=== PATIENT | male | born 1940 | race Caucasian/White ===

== ENCOUNTER → 2017-04-02 | Outpatient (CLI) | payer MEDICARE, OTHER ==
[~2017-04-02] VITALS: Ht 177.8 cm; Wt 88.0 kg
[~2017-04-02] MED LIST: ADENOSINE 74 MG in GIVE UN-DILUTED 0 ML IV ONE; ADENOSINE 90 MG/30 ML INJ IV ONE; ASPI81CH43 GT; CAR3125T PO; PRAS10TA GT; SIMV10TA84 PO; ZOLP10TA PO
== END | disposition home or self-care (01) ==
LOC: Rad HDHVI 08:03
PROVIDERS: ATTEND Internal Medicine Cardiovascular Disease
DX: I25.2 Old myocardial infarction (principal); I10 Essential (primary) hypertension; E11.9 Type 2 diabetes mellitus without complications; E78.00 Pure hypercholesterolemia, unspecified; E78.2 Mixed hyperlipidemia; Z95.1 Presence of aortocoronary bypass graft; Z95.0 Presence of cardiac pacemaker
CPT/HCPCS: 78452; 93005; 93306; 96374; 96375; A9500; J0153

== ENCOUNTER → 2017-07-01 | Outpatient (CLI) | payer MEDICARE, OTHER ==
[~2017-07-01] MED LIST changes: -ADENOSINE 74 MG in GIVE UN-DILUTED 0 ML IV ONE; -ADENOSINE 90 MG/30 ML INJ IV ONE
[2017-07-01 12:31] LABS: Vitamin B12 > 2000 pg/mL (211-911)
== END | disposition home or self-care (01) ==
LOC: LAB 08:53
PROVIDERS: ATTEND Internal Medicine Cardiovascular Disease
DX: E03.9 Hypothyroidism, unspecified (principal); R53.81 Other malaise; D51.9 Vitamin B12 deficiency anemia, unspecified
CPT/HCPCS: 36415; 82607; 84403; 84439; 84443

== ENCOUNTER → 2017-11-12 | Outpatient (CLI) | payer MEDICARE, OTHER | END | disposition home or self-care (01) | LOC: Rad HDHVI 08:48 | PROVIDERS: ATTEND Internal Medicine Cardiovascular Disease | DX: I73.9 Peripheral vascular disease, unspecified (principal); M79.606 Pain in leg, unspecified | CPT/HCPCS: 93926 ==

== ENCOUNTER → 2018-04-29 | Outpatient (CLI) | payer MEDICARE, BC | END | disposition home or self-care (01) | LOC: Rad HDHVI 13:15 | PROVIDERS: ATTEND Internal Medicine Cardiovascular Disease | DX: K42.9 Umbilical hernia without obstruction or gangrene (principal); K44.9 Diaphragmatic hernia without obstruction or gangrene; K57.30 Diverticulosis of large intestine without perforation or abscess without bleeding; I34.0 Nonrheumatic mitral (valve) insufficiency; I70.0 Atherosclerosis of aorta; I51.7 Cardiomegaly; I50.23 Acute on chronic systolic (congestive) heart failure; J44.9 Chronic obstructive pulmonary disease, unspecified; I73.9 Peripheral vascular disease, unspecified; N28.9 Disorder of kidney and ureter, unspecified; D64.9 Anemia, unspecified; E11.9 Type 2 diabetes mellitus without complications | CPT/HCPCS: 74176; 93306 ==

== ENCOUNTER → 2018-11-19 | Outpatient (CLI) | payer MEDICARE, BC | END | disposition home or self-care (01) | LOC: Rad HDHVI 09:41 | PROVIDERS: ATTEND Internal Medicine Cardiovascular Disease | DX: I37.1 Nonrheumatic pulmonary valve insufficiency (principal); I10 Essential (primary) hypertension | CPT/HCPCS: 93306 ==

== ENCOUNTER → 2019-06-15 | Outpatient (CLI) | payer MEDICARE, BC ==
[~2019-06-15] VITALS: Ht 177.8 cm; Wt 86.2 kg
[~2019-06-15] MED LIST changes: +ADENOSINE 72 MG in GIVE UN-DILUTED 0 ML IV ONE; +ADENOSINE 90 MG/30 ML INJ IV ONE
== END | disposition home or self-care (01) ==
LOC: Rad HDHVI 08:40
PROVIDERS: ATTEND Internal Medicine Cardiovascular Disease
DX: I25.119 Atherosclerotic heart disease of native coronary artery with unspecified angina pectoris (principal); R09.89 Other specified symptoms and signs involving the circulatory and respiratory systems; G45.9 Transient cerebral ischemic attack, unspecified; R58 Hemorrhage, not elsewhere classified; R06.01 Orthopnea; I73.9 Peripheral vascular disease, unspecified; E78.5 Hyperlipidemia, unspecified; I10 Essential (primary) hypertension; Z95.820 Peripheral vascular angioplasty status with implants and grafts
CPT/HCPCS: 78452; 93005; 96374; 96375; A9500; J0153

== ENCOUNTER → 2020-09-28 | Outpatient (CLI) | payer MEDICARE, BC ==
[~2020-09-28] MED LIST changes: -ADENOSINE 72 MG in GIVE UN-DILUTED 0 ML IV ONE; -ADENOSINE 90 MG/30 ML INJ IV ONE
== END | disposition home or self-care (01) ==
LOC: Rad HDHVI 09:51
PROVIDERS: ATTEND Internal Medicine Cardiovascular Disease
DX: R06.02 Shortness of breath (principal); G45.9 Transient cerebral ischemic attack, unspecified
CPT/HCPCS: 93306

== ENCOUNTER → 2020-10-10 | Outpatient (CLI) | payer MEDICARE, BC ==
[~2020-10-10] VITALS: Ht 177.8 cm; Wt 88.0 kg
[~2020-10-10] MED LIST changes: +ADENOSINE 74 MG in GIVE UN-DILUTED 0 ML IV ONE; +ADENOSINE 90 MG/30 ML INJ IV ONE
== END | disposition home or self-care (01) ==
LOC: Rad HDHVI 09:31
PROVIDERS: ATTEND Internal Medicine Cardiovascular Disease
DX: I25.10 Atherosclerotic heart disease of native coronary artery without angina pectoris (principal); I10 Essential (primary) hypertension; R06.02 Shortness of breath; E78.5 Hyperlipidemia, unspecified; Z95.1 Presence of aortocoronary bypass graft; Z82.49 Family history of ischemic heart disease and other diseases of the circulatory system
CPT/HCPCS: 78452; 93005; 96374; 96375; A9500; J0153

== ENCOUNTER → 2021-05-16 | Outpatient (CLI) | payer MEDICARE, BC ==
[~2021-05-16] MED LIST changes: -ADENOSINE 74 MG in GIVE UN-DILUTED 0 ML IV ONE; -ADENOSINE 90 MG/30 ML INJ IV ONE
== END | disposition home or self-care (01) ==
LOC: Rad HDHVI 10:42
PROVIDERS: ATTEND Internal Medicine Cardiovascular Disease
DX: J32.9 Chronic sinusitis, unspecified (principal)
CPT/HCPCS: 70210

== ENCOUNTER → 2021-05-23 | Outpatient (CLI) | payer MEDICARE, BC ==
[~2021-05-23] MED LIST changes: +CLOP75TA28 PO; +OLME40TA26 PO
== END | disposition home or self-care (01) ==
LOC: Rad HDHVI 13:39
PROVIDERS: ATTEND Internal Medicine Cardiovascular Disease
DX: I65.21 Occlusion and stenosis of right carotid artery (principal); I82.409 Acute embolism and thrombosis of unspecified deep veins of unspecified lower extremity; E78.5 Hyperlipidemia, unspecified
CPT/HCPCS: 93880

== ENCOUNTER 2021-06-07 08:21 | Day surgery (SDC) | payer MEDICARE, BC ==
[2021-06-04 12:04] LABS: Urine WBC None Seen /hpf (0 - 3)
[2021-06-04 12:17] LABS: Urine Bacteria NONE SEEN /hpf (None Seen); Urine Blood Negative /uL (Negative); Urine Specific Gravity 1.018 (1.001-1.035)
[2021-06-04 12:46] LABS: Basophils # (auto) 0.1 10 ^3/uL (0-0.2); Basophils % (auto) 1.5 % (0.0-2.0); Eosinophils # (auto) 0.2 10 ^3/uL (0-0.8); Eosinophils % (auto) 3.9 % (0.0-7.0); Hematocrit 43.1 % (41.0-53.0); Hemoglobin 14.6 g/dL (13.5-17.5); Lymphocytes # (auto) 2.2 10 ^3/uL (0.4-5.4); Lymphocytes % (auto) 37.5 % (10.0-50.0); Mean Corpuscular Hemoglobin 30.5 pg (28.0-32.0); Mean Corpuscular Hgb Conc. 33.8 g/dL (32.0-36.0); Mean Corpuscular Volume 90.3 fL (80.0-100.0); Monocytes # (auto) 0.5 10 ^3/uL (0-1.3); Monocytes % (auto) 9.2 % (0.0-12.0); Neutrophils # (auto) 2.8 10 ^3/uL (1.6-8.6); Neutrophils % (auto) 47.9 % (37.0-80.0); Red Blood Cells 4.77 10^6/uL (4.5-5.90); Red Cell Distribution Width 14.1 % (11.8-14.3); White Blood Cell 5.8 10^3/uL (4.4-10.8)
[2021-06-04 13:19] LABS: Potassium 4.1 mmol/L (3.5-5.1)
[2021-06-04 13:28] LABS: Albumin 3.9 g/dL (3.4-5.0); BUN/Creatinine Ratio 13.8; Bilirubin, Total 0.8 mg/dL (0.2-1.0); Calcium 9.5 mg/dL (8.5-10.1); Total Protein 7.9 g/dL (6.4-8.2)
[~2021-06-07] VITALS: Ht 177.8 cm; Wt 74.8 kg
[~2021-06-07 08:21] MED LIST changes: -ASPI81CH43 GT; -CAR3125T PO
[2021-06-07] MEDS ORDERED: SODIUM CHLORIDE LOCK 10 ML ONE (09:05)
[2021-06-07] MEDS ORDERED: LIDOCAINE VISCOUS 2% 15ML UD ONE (09:05)
[2021-06-07] MEDS ORDERED: diphenhdrAMINE HCL 50 MG/1 ML VL ONE (09:06)
[2021-06-07] MEDS: MIDAZOLAM HCL 5 MG/ML-1ML VIAL ONE ×2 (09:25→09:28)
[2021-06-07] MEDS: fentaNYL CITRATE 100 MCG/2 ML VL ONE ×2 (09:25→09:28)
[2021-06-07 10:00] VITALS: BP 157/82
== END 2021-06-07 10:30 | disposition home or self-care (01) ==
LOC: GI 08:21
PROVIDERS: ATTEND Internal Medicine Gastroenterology
DX: R13.10 Dysphagia, unspecified (principal); K22.2 Esophageal obstruction; K44.9 Diaphragmatic hernia without obstruction or gangrene; I10 Essential (primary) hypertension; E78.5 Hyperlipidemia, unspecified; Z79.899 Other long term (current) drug therapy; I25.810 Atherosclerosis of coronary artery bypass graft(s) without angina pectoris; Z20.822 Contact with and (suspected) exposure to COVID-19; Z98.890 Other specified postprocedural states; Z95.5 Presence of coronary angioplasty implant and graft
CPT/HCPCS: 36415; 43235; 43450; 80053; 81001; 85025; J1200; J2250; J3010; J7030; U0003

== ENCOUNTER → 2022-03-15 | Outpatient (CLI) | payer MEDICARE, BC ==
[~2022-03-15] MED LIST changes: +SODIUM CHLORIDE 0.9% 500 ML IV ONE
[2022-03-15 10:06] VITALS: BP 151/90
== END | disposition home or self-care (01) ==
LOC: Rad HDHVI 08:53
PROVIDERS: ATTEND Internal Medicine Cardiovascular Disease
DX: E86.0 Dehydration (principal); R42 Dizziness and giddiness; I25.10 Atherosclerotic heart disease of native coronary artery without angina pectoris; I10 Essential (primary) hypertension; E78.5 Hyperlipidemia, unspecified; Z95.1 Presence of aortocoronary bypass graft
CPT/HCPCS: 93306; 96360; 96361; G0463; J7040

== ENCOUNTER → 2022-12-25 | Outpatient (CLI) | payer MEDICARE, BC ==
[~2022-12-25] MED LIST changes: -SODIUM CHLORIDE 0.9% 500 ML IV ONE
== END | disposition home or self-care (01) ==
LOC: Rad HDHVI 12:48
PROVIDERS: ATTEND Internal Medicine Cardiovascular Disease
DX: I08.8 Other rheumatic multiple valve diseases (principal); I65.21 Occlusion and stenosis of right carotid artery; E78.5 Hyperlipidemia, unspecified; R07.89 Other chest pain
CPT/HCPCS: 93306; 93880

== ENCOUNTER 2023-01-09 13:10 | Inpatient (IN) | payer MEDICARE, BC ==
[~2023-01-09] VITALS: Ht 365.8 cm; Wt 77.7 kg
[2023-01-09 14:06] LABS: Basophils # (auto) 0 10 ^3/uL (0-0.2); Basophils % (auto) 0.6 % (0.0-2.0); Eosinophils # (auto) 0.1 10 ^3/uL (0-0.8); Eosinophils % (auto) 2.7 % (0.0-7.0); Hematocrit 41.8 % (41.0-53.0); Hemoglobin 14.1 g/dL (13.5-17.5); Lymphocytes % (auto) 19.1 % (10.0-50.0); Mean Corpuscular Hemoglobin 29.9 pg (28.0-32.0); Mean Corpuscular Hgb Conc. 33.8 g/dL (32.0-36.0); Mean Corpuscular Volume 88.4 fL (80.0-100.0); Monocytes # (auto) 0.6 10 ^3/uL (0-1.3); Monocytes % (auto) 11.4 % (0.0-12.0); Neutrophils # (auto) 3.6 10 ^3/uL (1.6-8.6); Neutrophils % (auto) 66.2 % (37.0-80.0); Nucleated Red Blood Cells % 0.3 %; Red Blood Cells 4.73 10^6/uL (4.5-5.90); White Blood Cell 5.5 10^3/uL (4.4-10.8)
[2023-01-09 14:24] LABS: Potassium 3.9 mmol/L (3.5-5.1)
[2023-01-09 14:27] LABS: INR 1.07 (0.9-1.15); Partial Thromboplastin Time 28.5 sec (24.6-33.4)
[2023-01-09 14:30] LABS: Bilirubin, Total 1.3 mg/dL (0.2-1.0); Total Protein 7.1 g/dL (6.4-8.2)
[2023-01-09] MEDS: SODIUM CHLORIDE 0.9% 1,000 ML IV SCH (18:30)
[2023-01-10] MEDS ORDERED: GASTROGRAFIN 120 ML SOL ONE (09:04)
[2023-01-10] MEDS: SODIUM CHLORIDE 0.9% 1,000 ML IV SCH (10:05)
[2023-01-10] MEDS ORDERED: ONDANSETRON HCL 4 MG/2 ML VIAL IV ONE (10:45)
[2023-01-10] MEDS: FEXOFENADINE HCL 60 MG TAB PO SCH (22:00)
[2023-01-11 00:05] VITALS: BP 142/82
[2023-01-11 05:00] VITALS: BP 157/81
[2023-01-11 09:00] VITALS: BP 163/70
[2023-01-11] MEDS: cefTRIAXone 1GM/50ML D5W 50 ML IV SCH (10:02)
[2023-01-11] MEDS: FEXOFENADINE HCL 60 MG TAB PO SCH ×2 (10:02→22:53)
[2023-01-11] MEDS: SODIUM CHLORIDE 0.9% 1,000 ML IV SCH (10:30)
[2023-01-11 13:00] VITALS: BP 141/72
[2023-01-11] MEDS ORDERED: OLMESARTAN 40MG TABLET PO ONE (14:45)
[2023-01-11 16:52] VITALS: BP 139/70
[2023-01-11 22:00] VITALS: BP 138/64
[2023-01-12] VITALS (7 sets, daily range): BP systolic 126–160; BP diastolic 63–86
[2023-01-12] MEDS: SODIUM CHLORIDE 0.9% 1,000 ML IV SCH ×2 (00:01→13:10)
[2023-01-12] MEDS: FEXOFENADINE HCL 60 MG TAB PO SCH ×2 (09:23→21:25)
[2023-01-12] MEDS: OLMESARTAN 40MG TABLET PO SCH (09:23)
[2023-01-12] MEDS: cefTRIAXone 1GM/50ML D5W 50 ML IV SCH (09:23)
[2023-01-13] MEDS: SODIUM CHLORIDE 0.9% 1,000 ML IV SCH ×3 (04:44→21:54)
[2023-01-13 04:56] VITALS: BP 124/75
[2023-01-13 08:00] VITALS: BP 117/70
[2023-01-13] MEDS: FEXOFENADINE HCL 60 MG TAB PO SCH ×2 (09:16→21:50)
[2023-01-13] MEDS: cefTRIAXone 1GM/50ML D5W 50 ML IV SCH (09:17)
[2023-01-13] MEDS: OLMESARTAN 40MG TABLET PO SCH (09:17)
[2023-01-13 12:00] VITALS: BP 120/74
[2023-01-13 16:00] VITALS: BP 112/70
[2023-01-13 22:00] VITALS: BP 143/59
[2023-01-14 05:00] VITALS: BP 114/62
[2023-01-14] MEDS: SODIUM CHLORIDE 0.9% 1,000 ML IV SCH (07:00)
[2023-01-14 08:00] VITALS: BP 102/71
[2023-01-14] MEDS: FEXOFENADINE HCL 60 MG TAB PO SCH (09:07)
[2023-01-14] MEDS: OLMESARTAN 40MG TABLET PO SCH (09:10)
[2023-01-14] MEDS: cefTRIAXone 1GM/50ML D5W 50 ML IV SCH (09:11)
[2023-01-14 12:00] VITALS: BP 119/66
[2023-01-14 16:00] VITALS: BP 159/79
== END 2023-01-14 18:00 | disposition home or self-care (01) | DRG 391 ==
LOC: ER 13:10 → OVERFLOW 01-10 07:32 → EAST 01-10 23:11
PROVIDERS: ADMIT Internal Medicine Cardiovascular Disease; ATTEND Internal Medicine Cardiovascular Disease
DX: R13.10 Dysphagia, unspecified (principal); U07.1 COVID-19; R64 Cachexia; G24.9 Dystonia, unspecified; I12.9 Hypertensive chronic kidney disease with stage 1 through stage 4 chronic kidney disease, or unspecified chronic kidney disease; K22.9 Disease of esophagus, unspecified; E11.22 Type 2 diabetes mellitus with diabetic chronic kidney disease; E78.5 Hyperlipidemia, unspecified; I25.10 Atherosclerotic heart disease of native coronary artery without angina pectoris; I25.2 Old myocardial infarction; N18.9 Chronic kidney disease, unspecified; Z20.822 Contact with and (suspected) exposure to COVID-19; Z82.49 Family history of ischemic heart disease and other diseases of the circulatory system; Z95.1 Presence of aortocoronary bypass graft; Z90.49 Acquired absence of other specified parts of digestive tract; Z68.24 Body mass index [BMI] 24.0-24.9, adult
CPT/HCPCS: 36415; 70450; 70490; 71045; 74220; 80053; 82962; 84484; 85025; 85610; 85730; 87426; 92610; 93005; 96360; 96361; 96374; G0378; G0463; J0696; J2405

== ENCOUNTER → 2023-07-21 | Outpatient (CLI) | payer MEDICARE, BC ==
[~2023-07-21] VITALS: Ht 177.8 cm; Wt 76.2 kg
[~2023-07-21] MED LIST changes: +ADENOSINE 64 MG in GIVE UN-DILUTED 0 ML IV ONE; +ADENOSINE 90 MG/30 ML INJ IV ONE; -OLME40TA26 PO; +OLME40TA78 PO; +SIMV10TA20 PO; -SIMV10TA84 PO
== END | disposition home or self-care (01) ==
LOC: Rad HDHVI 13:10
PROVIDERS: ATTEND Internal Medicine Cardiovascular Disease
DX: I25.10 Atherosclerotic heart disease of native coronary artery without angina pectoris (principal); R00.2 Palpitations; R06.02 Shortness of breath; I10 Essential (primary) hypertension; Z95.1 Presence of aortocoronary bypass graft
CPT/HCPCS: 78452; 93005; 96374; 96375; A9500; J0153

== ENCOUNTER → 2024-10-27 | Outpatient (CLI) | payer MEDICARE, BC ==
[~2024-10-27] MED LIST changes: -ADENOSINE 64 MG in GIVE UN-DILUTED 0 ML IV ONE; -ADENOSINE 90 MG/30 ML INJ IV ONE
== END | disposition home or self-care (01) ==
LOC: Rad HDHVI 08:31
PROVIDERS: ATTEND Internal Medicine Cardiovascular Disease
DX: I10 Essential (primary) hypertension (principal); R07.89 Other chest pain
CPT/HCPCS: 93880

== ENCOUNTER → 2024-11-19 | Outpatient (CLI) | payer MEDICARE, BC ==
[~2024-11-19] VITALS: Ht 177.8 cm; Wt 75.7 kg
[~2024-11-19] MED LIST changes: +ADENOSINE 64 MG in GIVE UN-DILUTED 0 ML IV ONE; +ADENOSINE 90 MG/30 ML INJ IV ONE
== END | disposition home or self-care (01) ==
LOC: Rad HDHVI 09:39
PROVIDERS: ATTEND Internal Medicine Cardiovascular Disease
DX: I10 Essential (primary) hypertension (principal); R07.89 Other chest pain; E78.00 Pure hypercholesterolemia, unspecified; I25.10 Atherosclerotic heart disease of native coronary artery without angina pectoris; R06.02 Shortness of breath; Z95.1 Presence of aortocoronary bypass graft
CPT/HCPCS: 78452; 93005; 96374; 96375; A9500; J0153

== ENCOUNTER → 2025-04-01 | Outpatient (CLI) | payer MEDICARE, BC ==
[~2025-04-01] MED LIST changes: -ADENOSINE 64 MG in GIVE UN-DILUTED 0 ML IV ONE; -ADENOSINE 90 MG/30 ML INJ IV ONE
--- NOTE | 2025-04-01 13:53 | DVH ---
INDICATION: NECK PAIN COMPARISON: None TECHNIQUE: 4 views of the cervical spine were obtained. FINDINGS: Straightening of the cervical spine curvature The predental space is normal. Severe multilevel degenerative disc disease of the cervical spine. No acute fracture, vertebral compression deformity or aggressive osseous lesions. The imaged lung apices are unremarkable. IMPRESSION: No acute fracture. Severe multilevel degenerative disc disease of the cervical spine.
== END | disposition home or self-care (01) ==
LOC: Rad HDHVI 11:54
PROVIDERS: ATTEND Internal Medicine Cardiovascular Disease
DX: M50.30 Other cervical disc degeneration, unspecified cervical region (principal)
CPT/HCPCS: 72040

== ENCOUNTER → 2025-06-06 | Outpatient (CLI) | payer MEDICARE, BC ==
--- NOTE | 2025-06-06 12:22 | DVH ---
CT abdomen and pelvis done without contrast INDICATION: ABD PAIN TECHNIQUE: Serial axial images were performed through the abdomen and pelvis and then reformatted in the sagittal and coronal plane. All CT scans at this medical facility are performed using dose modula tion techniques as appropriate to a performed exam including the following: Automated exposure contro l was utilized; adjustment of the MA and/or KvP according to patient size; and use of iterative recon struction technique. FINDINGS: Lung bases are clear except for small calcified granulomata..Small hiatal hernia at the GE junction. Liver and spleen are normal in size without focal mass. No gallstones. No biliary dilatation. Right kidney shows a 5.3 cm cyst. Small nonobstructive stones in the left kidney. . No masses or enlargement of the adrenal glands or pancreas. No distention of bowel loops to suggest mechanical obstruction of bowel. Sigmoid diverticulosis witho ut diverticulitis. The appendix is normal in appearance. No free fluid. Within the pelvis, bladder is smooth walled without stones. Slight enlargement of the prostate gland. Atherosclerotic calcification in the winters of the vasculature. There are no enlarged abdominal or pelvic lymph nodes There are degenerative changes in the lumbar spine IMPRESSION: 1. Small nonobstructive stones in the left kidney. 2. 5 cm right renal cyst. 3. Sigmoid diverticulosis without diverticulitis. Note made that the study is limited by lack of IV contrast making evaluation of GI pathology difficul t Computed Tomographic Radiation Dosimetry Report: Total CTDI vol = 8 mGy Total DLP = 368 mGy-cm Low do se protocols were performed.
== END | disposition home or self-care (01) ==
LOC: Rad HDHVI 09:59
PROVIDERS: ATTEND Internal Medicine Cardiovascular Disease
DX: N28.1 Cyst of kidney, acquired (principal); N20.0 Calculus of kidney; K57.30 Diverticulosis of large intestine without perforation or abscess without bleeding; D71 Functional disorders of polymorphonuclear neutrophils; K44.9 Diaphragmatic hernia without obstruction or gangrene; M47.816 Spondylosis without myelopathy or radiculopathy, lumbar region; I70.8 Atherosclerosis of other arteries; R10.9 Unspecified abdominal pain
CPT/HCPCS: 74176